=== PATIENT | female | born 1985 | race Caucasian/White ===

== ENCOUNTER 2017-02-21 21:40 | Emergency (ER) | payer MEDICAID, OTHER ==
[~2017-02-21] VITALS: Ht 165.1 cm; Wt 87.1 kg
[2017-02-21 21:51] VITALS: BP 144/101
[2017-02-21] MEDS ORDERED: NAPR500T1 PO (21:57)
[2017-02-21] MEDS ORDERED: ACET-2869 PO (21:57)
[2017-02-21] MEDS ORDERED: LISI10TA11 PO (21:57)
--- NOTE | 2017-02-21 22:52 | NUR ---
PT AMB TO ER BED 4
--- NOTE | 2017-02-21 23:00 | NUR ---
PATIENT PRESENTS TO ED WITH RASH TO RIGHT SIDE OF BACK; SEEN AT [place] LAST WEEK DX SHINGLES .DENIES N/V/D; SKIN IS PINK/WARM/DRY; AAOX4 WITH EVEN AND STEADY GAIT; LUNGS CLEAR BL; HR EVEN AND REGULAR; PT DENIES ANY FEVER, CP, SOB, OR COUGH AT THIS TIME; PATIENT STATES PAIN OF 8/10 AT THIS TIME; VSS; PATIENT POSITIONED FOR COMFORT; HOB ELEVATED; BEDRAILS UP X2; BED DOWN. ER MD MADE AWARE OF PT STATUS.
[2017-02-21] MEDS ORDERED: traMADol 50 MG TAB PO ONE (23:25)
--- NOTE | 2017-02-21 23:48 | NUR ---
Patient discharged with v/s stable. Written and verbal after care instructions given and explained. Patient alert, oriented and verbalized understanding of instructions. Ambulatory with steady gait. All questions addressed prior to discharge. ID band removed. Patient advised to follow up with PMD. Rx of tramadol and zofran given. Patient educated on indication of medication including possible reaction and side effects. Opportunity to ask questions provided and answered.
[2017-02-21 23:49] VITALS: BP 131/86
== END 2017-02-21 23:49 | disposition home or self-care (01) ==
LOC: MED 21:40
DX: B02.9 Zoster without complications (principal); R03.0 Elevated blood-pressure reading, without diagnosis of hypertension
CPT/HCPCS: 81002; 81025; 99283

== ENCOUNTER 2018-09-10 20:57 | Emergency (ER) | payer MEDICAID ==
[~2018-09-10] VITALS: Ht 167.6 cm; Wt 83.9 kg
[~2018-09-10 20:57] MED LIST: HYDR-5122 PO; LISI10TA11 PO; NAPR-54 PO
[2018-09-10 21:00] VITALS: BP 165/100
--- NOTE | 2018-09-10 21:03 | NUR ---
TO LOBBY A/W BED AMBULATORY
--- NOTE | 2018-09-10 21:51 | NUR ---
PT AMBULATED TO BED 1.
--- NOTE | 2018-09-10 21:52 | NUR ---
32 YO FEMALE WAS @ WORK AND DECIDED TO COME TO ER FOR C/O R LEG AND BILAT HANDS NUMBNESS. PT STATES SHE HAD PANIC ATTACK THIS AM AND RECENTLY HAD NEW STRESSOR IN LIFE. PT STATES, " I FOUND OUT MY TEENAGE DAUGHTER WAS A COUPLE DAYS AGO." PT DENIES DIZZINESS @ THIS TIME. LUNGS CLEAR EVEN UNLABORED BILATERALLY. PT DENIES CP/SOB @ THIS TIME. ABD SOFT NON DISTENDED. SKIN WARM DRY PINK INTACT. GURNEY LOCKED IN LOWEST POSITION. WILL UPDATE ERMD HX: HTN RX: LISINOPRIL LMP 08/27
[2018-09-10] MEDS ORDERED: ENALAPRILAT 2.5 MG/2 ML VIAL IVP ONE ×2 (22:55→23:35)
[2018-09-10] MEDS ORDERED: hydrALAZINE 20 MG/ML VIAL IVP ONE (22:55)
[2018-09-10 23:15] LABS: BASOPHILS % (AUTO) 0.6 % (0.0-2.0); EOSINOPHILS # (AUTO) 0.1 K/uL (0-0.4); EOSINOPHILS % (AUTO) 1.2 % (0.0-4.0); HEMATOCRIT 38.6 % (36-48); HEMOGLOBIN 12.6 g/dL (12.0-16.0); LYMPHOCYTES # (AUTO) 2.2 K/uL (2.5-16.5); LYMPHOCYTES % (AUTO) 34.3 % (20.5-51.1); MEAN CORPUSCULAR HEMOGLOBIN 27 pg (27-31); MEAN CORPUSCULAR HGB CONC 33 g/dL (33-37); MEAN CORPUSCULAR VOLUME 81.5 fL (80-94); MONOCYTES # (AUTO) 0.5 K/uL (0.8-1.0); MONOCYTES % (AUTO) 8.1 % (1.7-9.3); NEUTROPHILS # (AUTO) 3.6 K/uL (1.8-7.7); NEUTROPHILS % (AUTO) 55.8 % (42.2-75.2); PLATELET COUNT (AUTO) 301 K/uL (140-450); RED BLOOD CELL COUNT(AUTO) 4.73 MIL/uL (4.20-5.40); RED CELL DISTRIBUTION WIDTH 15.3 % (11.6-13.7); WHITE BLOOD COUNT (AUTO) 6.4 K/uL (4.8-10.8)
[2018-09-10 23:38] LABS: ANION GAP 14.7 (8-16); CARBON DIOXIDE 25.9 mmol/L (21-32); CREATININE 0.8 mg/dL (0.6-1.3); POTASSIUM 3.6 mmol/L (3.5-5.1); TOTAL BILIRUBIN 0.6 mg/dL (0.0-1.0)
[2018-09-10 23:39] LABS: ALBUMIN 3.8 g/dL (3.4-5.0)
[2018-09-10 23:58] VITALS: BP 155/82
--- NOTE | 2018-09-10 23:58 | NUR ---
DPatient discharged with v/s stable. Written and verbal after care instructions given and explained BY DR GALEANO Patient alert, oriented and verbalized understanding of instructions. Ambulatory with steady gait. All questions addressed prior to discharge BY DR GALEANO ID band removed. Patient advised to follow up with PMD. Rx of LISINPRIL/HCTZ given. Patient educated on indication of medication including possible reaction and side effects BY DR GALEANO Opportunity to ask questions provided and answered.
== END 2018-09-10 23:58 | disposition home or self-care (01) ==
LOC: MED 20:57
DX: I10 Essential (primary) hypertension (principal); Z79.891 Long term (current) use of opiate analgesic; Z79.1 Long term (current) use of non-steroidal anti-inflammatories (NSAID); Z79.899 Other long term (current) drug therapy
CPT/HCPCS: 36415; 80053; 85025; 99283; J0360; J3490

== ENCOUNTER 2020-01-11 23:20 | Emergency (ER) | payer MEDICAID ==
[~2020-01-11] VITALS: Ht 167.6 cm; Wt 83.5 kg
[2020-01-11 23:33] VITALS: BP 162/112
--- NOTE | 2020-01-11 23:36 | NUR ---
PT AMBULATED TO BED 03 WTIH STEADY GAIT.
--- NOTE | 2020-01-11 23:40 | NUR ---
PATIENT PRESENTS TO ED COMPLAINING OF PANIC ATTACK . PT STATES SHE GET THEMWHEN HER BBLOODPREESURE IS ELEVATED, AND HAS BEEN OFF HER MEDICATION FOR 2 WEEKSAS SHE HAS NOT BEE N ABLE TO SEE HER DOCTOR. DENIES N/V/D; SKIN IS PINK/WARM/DRY; AAOX4 WITH EVEN AND STEADY GAIT; LUNGS CLEAR BL; HR EVEN AND REGULAR; PT DENIES ANY FEVER, CP, SOB, OR COUGH AT THIS TIME; PATIENT STATES PAIN OF 0/10 AT THIS TIME; VSS; PATIENT POSITIONED FOR COMFORT; HOB ELEVATED; BEDRAILS UP X1; BED DOWN. ER MD MADE AWARE OF PT STATUS.
[2020-01-12] MEDS ORDERED: hydroCHLOROthiazide 25 MG TAB PO ONE
[2020-01-12] MEDS ORDERED: lisinopriL 20 MG TAB PO ONE
[2020-01-12 00:46] VITALS: BP 162/112
--- NOTE | 2020-01-12 00:46 | NUR ---
Patient discharged with v/s stable. Written and verbal after care instructions given and explained. Patient alert, oriented and verbalized understanding of instructions. Ambulatory with steady gait. All questions addressed prior to discharge. ID band removed. Patient advised to follow up with PMD. Rx of LISINOPRIL given. Patient educated on indication of medication including possible reaction and side effects. Opportunity to ask questions provided and answered.
== END 2020-01-12 00:45 | disposition home or self-care (01) ==
LOC: MED 23:20
DX: I10 Essential (primary) hypertension (principal); Z79.899 Other long term (current) drug therapy
CPT/HCPCS: 93005; 99283

== ENCOUNTER 2020-10-09 00:30 | Emergency (ER) | payer MEDICAID ==
[~2020-10-09] VITALS: Ht 165.1 cm; Wt 79.4 kg
[~2020-10-09 00:30] MED LIST changes: +LISI-486 PO; -LISI10TA11 PO
[2020-10-09 00:33] VITALS: BP 155/100
[2020-10-09] MEDS ORDERED: AMLO2.5T PO (03:35)
[2020-10-09 03:46] VITALS: BP 155/100
== END 2020-10-09 03:46 | disposition home or self-care (01) ==
LOC: MED 00:30
DX: F41.9 Anxiety disorder, unspecified (principal); I10 Essential (primary) hypertension
CPT/HCPCS: 99283

== ENCOUNTER 2021-06-12 01:30 | Emergency (ER) | payer MEDICAID ==
[~2021-06-12] VITALS: Ht 165.1 cm; Wt 81.6 kg
[~2021-06-12 01:30] MED LIST changes: +AMLO2.5T PO
[2021-06-12 01:55] VITALS: BP 157/104
[2021-06-12] MEDS ORDERED: AMLO2.5T PO ×2 (02:08→02:55)
[2021-06-12] MEDS ORDERED: LISI-486 PO (02:08)
[2021-06-12] MEDS ORDERED: LISI-487 PO (02:55)
[2021-06-12 03:00] VITALS: BP 157/104
== END 2021-06-12 03:00 | disposition home or self-care (01) ==
LOC: MED 01:30
DX: I10 Essential (primary) hypertension (principal); R42 Dizziness and giddiness; Z76.0 Encounter for issue of repeat prescription; Z79.899 Other long term (current) drug therapy; Z98.890 Other specified postprocedural states
CPT/HCPCS: 99281

== ENCOUNTER 2021-11-14 13:43 | Emergency (ER) | payer MEDICAID ==
[~2021-11-14] VITALS: Ht 167.6 cm; Wt 81.6 kg
[~2021-11-14 13:43] MED LIST changes: +LISI-487 PO
[2021-11-14 14:09] VITALS: BP 145/105
--- NOTE | 2021-11-14 15:01 | NUR ---
Willis Alvarenga evaluating pt chair A
[2021-11-14] MEDS ORDERED: MECL-303 PO (15:40)
[2021-11-14 16:30] VITALS: BP 152/103
--- NOTE | 2021-11-14 16:30 | NUR ---
Patient discharged with v/s stable. Written and verbal after care instructions about benign positional vertigo given and explained. Patient alert, oriented and verbalized understanding of instructions. Ambulatory with steady gait. All questions addressed prior to discharge. ID band removed. Patient advised to follow up with PMD. Rx of Meclizine given. Patient educated on indication of medication including possible reaction and side effects. Opportunity to ask questions provided and answered.
== END 2021-11-14 16:30 | disposition home or self-care (01) ==
LOC: MED 13:43
DX: H81.10 Benign paroxysmal vertigo, unspecified ear (principal); I10 Essential (primary) hypertension; Z79.899 Other long term (current) drug therapy
CPT/HCPCS: 81025; 99282

== ENCOUNTER 2022-04-02 16:02 | Emergency (ER) | payer MEDICAID ==
[~2022-04-02] VITALS: Ht 162.6 cm; Wt 77.1 kg
[~2022-04-02 16:02] MED LIST changes: +MECL-303 PO
[2022-04-02 16:10] VITALS: BP 177/121
[2022-04-02] MEDS ORDERED: LORazepam 2 MG/ML VIAL ONE (16:35)
[2022-04-02 17:49] LABS: BASOPHILS # (AUTO) 0.1 K/uL (0.00-0.22); BASOPHILS % (AUTO) 0.7 % (0.0-2.0); EOSINOPHILS # (AUTO) 0.2 K/uL (0-0.4); EOSINOPHILS % (AUTO) 2.4 % (0.0-4.0); HEMATOCRIT 38.5 % (36-48); HEMOGLOBIN 12.8 g/dL (12.0-16.0); LYMPHOCYTES % (AUTO) 37.6 % (20.5-51.1); MEAN CORPUSCULAR HEMOGLOBIN 27 pg (27-31); MEAN CORPUSCULAR HGB CONC 33 g/dL (33-37); MEAN CORPUSCULAR VOLUME 82.2 fL (80-94); MONOCYTES # (AUTO) 0.8 K/uL (0.8-1.0); MONOCYTES % (AUTO) 9.9 % (1.7-9.3); NEUTROPHILS # (AUTO) 3.9 K/uL (1.8-7.7); NEUTROPHILS % (AUTO) 49.4 % (42.2-75.2); PLATELET COUNT (AUTO) 285 K/uL (140-450); RED BLOOD CELL COUNT(AUTO) 4.68 MIL/uL (4.20-5.40); RED CELL DISTRIBUTION WIDTH 15.2 % (11.6-13.7); WHITE BLOOD COUNT (AUTO) 7.9 K/uL (4.8-10.8)
--- NOTE | 2022-04-02 17:51 | NUR ---
36 Y/O FEMALE BIB SELF C/O RIGHT ARM PAIN X30 MIN, DENIES ANY TRAUMA OR INJURY NKA PMH: HTN
--- NOTE | 2022-04-02 17:52 | NUR ---
PT TAKEN TO XRAY VIA WC
[2022-04-02 18:25] LABS: ALBUMIN 4.2 g/dL (3.4-5.0); ANION GAP 11.2 (8-16); ASPARTATE AMINOTRANSFERASE 20 U/L (15-37); CARBON DIOXIDE 30.7 mmol/L (21-32); CHLORIDE 102 mmol/L (98-107); CREATININE 0.7 mg/dL (0.6-1.3); GFR ARICAN-AMERICAN 120 mL/min (>90); GLUCOSE 94 mg/dL (74-106); POTASSIUM 3.9 mmol/L (3.5-5.1); SODIUM SERUM 140 mmol/L (136-145); TOTAL BILIRUBIN 0.3 mg/dL (0.0-1.0); UREA NITROGEN, BLOOD 7 mg/dL (7-18)
--- NOTE | 2022-04-02 19:24 | NUR ---
Pt report given to JOSUE ESPINOZA. Transfer of care at this time.
--- NOTE | 2022-04-02 19:50 | NUR ---
Patient lying in bed, A/Ox4, chest rise and fall symmetrical, no s/s of distress, no c/o pain.
[2022-04-02 20:59] VITALS: BP 118/84
--- NOTE | 2022-04-02 21:03 | NUR ---
Patient discharged with v/s stable. Written and verbal after care instructions given and explained. Patient verbalized understanding. Ambulatory with steady gait. All questions addressed prior to discharge. Advised to follow up with PMD.
== END 2022-04-02 21:03 | disposition home or self-care (01) ==
LOC: MED 16:02
DX: M79.602 Pain in left arm (principal); I10 Essential (primary) hypertension; Z79.899 Other long term (current) drug therapy; Z98.890 Other specified postprocedural states
CPT/HCPCS: 36415; 71046; 80053; 84484; 85025; 93005; 99285; J2060

== ENCOUNTER 2022-05-13 02:14 | Emergency (ER) | payer MEDICAID ==
[~2022-05-13] VITALS: Ht 167.6 cm; Wt 84.8 kg
[2022-05-13 02:16] VITALS: BP 173/119
--- NOTE | 2022-05-13 02:25 | NUR ---
Patient taken to bed 2.
--- NOTE | 2022-05-13 02:30 | NUR ---
Patient resting in bed, A/Ox4, chest rise and fall symmetrical, no c/o pain or s/s of distress.
--- NOTE | 2022-05-13 02:35 | NUR ---
Dr. Brown speaking with patient.
[2022-05-13] MEDS: ACETAMINOPHEN EXTRA STRENGTH 500 MG TAB PO ONE (02:47)
[2022-05-13] MEDS: lisinopriL 20 MG TAB PO ONE (02:48)
--- NOTE | 2022-05-13 03:00 | NUR ---
Patient resting in bed, A/Ox4, chest rise and fall symmetrical, no c/o pain or s/s of distress.
[2022-05-13] MEDS ORDERED: ACET-10509 PO (03:13)
[2022-05-13] MEDS ORDERED: LISI-487 PO (03:13)
[2022-05-13] MEDS ORDERED: MENT7.6L6 PO (03:13)
[2022-05-13 03:20] VITALS: BP 153/100
== END 2022-05-13 03:20 | disposition home or self-care (01) ==
LOC: MED 02:14
DX: B34.9 Viral infection, unspecified (principal); Z20.822 Contact with and (suspected) exposure to COVID-19; I10 Essential (primary) hypertension; Z98.890 Other specified postprocedural states; Z79.899 Other long term (current) drug therapy; Z79.1 Long term (current) use of non-steroidal anti-inflammatories (NSAID); Z79.891 Long term (current) use of opiate analgesic
CPT/HCPCS: 99283

== ENCOUNTER 2022-09-11 07:00 | Emergency (ER) | payer MEDICAID ==
[~2022-09-11] VITALS: Ht 167.6 cm; Wt 86.2 kg
[~2022-09-11 07:00] MED LIST changes: +ACET-10509 PO; +MENT7.6L6 PO
[2022-09-11 07:47] VITALS: BP 125/82; PULSE 97; RESP 20; TEMP 97; O2SAT 98
--- NOTE | 2022-09-11 08:08 | NUR ---
Dr. Guallpa evaluating patient at bedside.
[2022-09-11] MEDS ORDERED: ONDANSETRON 4 MG/2 ML VIAL IVP ONE (08:15)
[2022-09-11] MEDS ORDERED: MORPHINE SULFATE 4 MG/ML SYR IVP ONE (08:15)
[2022-09-11] MEDS ORDERED: NACL 0.9% 1,000 ML IV ONE (08:15)
[2022-09-11 08:33] LABS: BASOPHILS % (AUTO) 0.6 % (0.0-2.0); EOSINOPHILS # (AUTO) 0.2 K/uL (0-0.4); EOSINOPHILS % (AUTO) 2.3 % (0.0-4.0); HEMATOCRIT 41.7 % (36-48); HEMOGLOBIN 13.8 g/dL (12.0-16.0); LYMPHOCYTES # (AUTO) 2.1 K/uL (2.5-16.5); MEAN CORPUSCULAR HEMOGLOBIN 28 pg (27-31); MEAN CORPUSCULAR HGB CONC 33 g/dL (33-37); MEAN CORPUSCULAR VOLUME 83.5 fL (80-94); MONOCYTES # (AUTO) 0.5 K/uL (0.8-1.0); MONOCYTES % (AUTO) 6.6 % (1.7-9.3); NEUTROPHILS # (AUTO) 4.4 K/uL (1.8-7.7); NEUTROPHILS % (AUTO) 61.5 % (42.2-75.2); PLATELET COUNT (AUTO) 324 K/uL (140-450); RED BLOOD CELL COUNT(AUTO) 4.99 MIL/uL (4.20-5.40); RED CELL DISTRIBUTION WIDTH 15.6 % (11.6-13.7); WHITE BLOOD COUNT (AUTO) 7.2 K/uL (4.8-10.8)
--- NOTE | 2022-09-11 08:35 | NUR ---
Ultrasound at bedside.
[2022-09-11 08:46] LABS: ANION GAP 10.9 (8-16); CARBON DIOXIDE 30.5 mmol/L (21-32); CREATININE 0.6 mg/dL (0.6-1.3); POTASSIUM 3.4 mmol/L (3.5-5.1); TOTAL BILIRUBIN 0.3 mg/dL (0.0-1.0)
[2022-09-11 09:04] LABS: APPEARANCE,URINE CLEAR (CLEAR); BILIRUBIN,URINE NEGATIVE (NEGATIVE); BLOOD, URINE NEGATIVE (NEGATIVE); COLOR,URINE YELLOW (YELLOW); LEUKOCYTE ESTERASE ,URINE NEGATIVE (NEGATIVE); NITRITE, URINE NEGATIVE (NEGATIVE); UGLUCOSE NEGATIVE (NEGATIVE)
--- NOTE | 2022-09-11 09:11 | NUR ---
Patient returned from CT.
[2022-09-11] MEDS ORDERED: MAGN400S60 PO (09:38)
[2022-09-11] MEDS ORDERED: IBUP-2213 PO (09:38)
[2022-09-11] MEDS ORDERED: ONDA-188 PO (09:38)
--- NOTE | 2022-09-11 09:41 | NUR ---
Dr. Guallpa evaluating patient at bedside.
--- NOTE | 2022-09-11 10:00 | NUR ---
Chart checked and completed. The patient's care was reviewed and supervised by MICKI ARAMBULA RN.
[2022-09-11 10:02] VITALS: BP 134/95; PULSE 69; RESP 18; O2SAT 100
--- NOTE | 2022-09-11 10:02 | NUR ---
Patient discharged with v/s stable. Written and verbal after care instructions given. Patient alert, oriented and verbalized understanding of instructions. Ambulatory with steady gait. All questions addressed prior to discharge. ID band removed. Patient advised to follow up with PMD. Rx of Ibuprofen, Milk of Magnesia and Zofran given. Opportunity to ask questions provided and answered. WORK NOTE HANDED TO PATIENT.
== END 2022-09-11 10:00 | disposition home or self-care (01) ==
LOC: MED 07:00
DX: K59.00 Constipation, unspecified (principal); I10 Essential (primary) hypertension; Z98.890 Other specified postprocedural states; Z79.899 Other long term (current) drug therapy
CPT/HCPCS: 36415; 74176; 76830; 80053; 81003; 81025; 82150; 83690; 84703; 85025; 87086; 96361; 96374; 96375; 99285; J2270; J2405; Q0092; J7030

== ENCOUNTER 2022-10-21 06:45 | Emergency (ER) | payer MEDICAID ==
[~2022-10-21] VITALS: Ht 167.6 cm; Wt 86.2 kg
[~2022-10-21 06:45] MED LIST changes: +IBUP-2213 PO; +MAGN400S60 PO; +ONDA-188 PO
[2022-10-21 06:54] VITALS: BP 125/68; PULSE 81; RESP 16; TEMP 98; O2SAT 98
--- NOTE | 2022-10-21 06:57 | NUR ---
TO LOBBY A/W BED AMBULATORY
[2022-10-21] MEDS ORDERED: LIDOCAINE 5% 1 EA PATCH TP ONE (07:30)
[2022-10-21] MEDS ORDERED: KETOROLAC 30 MG/ML VIAL IM ONE (07:30)
[2022-10-21] MEDS ORDERED: methocarbamoL 500 MG TAB PO ONE (07:50)
[2022-10-21] MEDS ORDERED: CYCL-711 PO (09:54)
[2022-10-21] MEDS ORDERED: LID5T TP (09:54)
[2022-10-21] MEDS ORDERED: IBUP-2213 PO (09:54)
--- NOTE | 2022-10-21 10:05 | NUR ---
Patient discharged with v/s stable. Written and verbal after care instructions given and explained. Patient alert, oriented and verbalized understanding of instructions. Ambulatory with steady gait. All questions addressed prior to discharge. ID band removed. Patient advised to follow up with PMD. Rx of FLEXERIL, LIDOCAINE, IBUPROFEN given. Patient educated on indication of medication including possible reaction and side effects. Opportunity to ask questions provided and answered.
== END 2022-10-21 07:35 | disposition home or self-care (01) ==
LOC: MED 06:45
DX: S39.012A Strain of muscle, fascia and tendon of lower back, initial encounter (principal); I10 Essential (primary) hypertension; Z79.899 Other long term (current) drug therapy; X58.XXXA Exposure to other specified factors, initial encounter; Y93.89 Activity, other specified; Y92.89 Other specified places as the place of occurrence of the external cause; Y99.8 Other external cause status
CPT/HCPCS: 96372; 99283; J1885

== ENCOUNTER 2023-10-19 13:26 | Emergency (ER) | payer MEDICAID ==
[~2023-10-19] VITALS: Ht 167.6 cm; Wt 85.7 kg
[~2023-10-19 13:26] MED LIST changes: +CYCL-711 PO; +LID5T TP; -LISI-486 PO; -LISI-487 PO; +LISI-951 PO; +LISI-953 PO; +MENT7.6L13 PO; -MENT7.6L6 PO; +NAPR-337 PO; -NAPR-54 PO
[2023-10-19 13:49] VITALS: BP 157/100; PULSE 86; RESP 24; TEMP 98; O2SAT 99
[2023-10-19] MEDS: KETOROLAC 30 MG/ML VIAL IVP ONE (14:40)
[2023-10-19] MEDS: diphenhydrAMINE 50 MG/ML VIAL IVP ONE (14:40)
[2023-10-19] MEDS: ONDANSETRON 4 MG/2 ML VIAL IVP ONE (14:40)
[2023-10-19 14:46] LABS: BASOPHILS % (AUTO) 0.3 % (0.0-2.0); EOSINOPHILS % (AUTO) 0.1 % (0.0-4.0); HEMATOCRIT 38.6 % (36-48); HEMOGLOBIN 12.6 g/dL (12.0-16.0); LYMPHOCYTES # (AUTO) 1.3 K/uL (2.5-16.5); LYMPHOCYTES % (AUTO) 12.5 % (20.5-51.1); MEAN CORPUSCULAR HEMOGLOBIN 26 pg (27-31); MEAN CORPUSCULAR HGB CONC 33 g/dL (33-37); MEAN CORPUSCULAR VOLUME 80.2 fL (80-94); MONOCYTES # (AUTO) 0.3 K/uL (0.8-1.0); MONOCYTES % (AUTO) 2.7 % (1.7-9.3); NEUTROPHILS # (AUTO) 8.5 K/uL (1.8-7.7); NEUTROPHILS % (AUTO) 84.4 % (42.2-75.2); PLATELET COUNT (AUTO) 320 K/uL (140-450); RED BLOOD CELL COUNT(AUTO) 4.81 MIL/uL (4.20-5.40); RED CELL DISTRIBUTION WIDTH 15.9 % (11.6-13.7); WHITE BLOOD COUNT (AUTO) 10.1 K/uL (4.8-10.8)
[2023-10-19 14:57] LABS: ANION GAP 12.7 (8-16); CALCIUM 8.9 mg/dL (8.5-10.1); CARBON DIOXIDE 28.7 mmol/L (21-32); CREATININE 0.8 mg/dL (0.6-1.3); POTASSIUM 3.4 mmol/L (3.5-5.1)
[2023-10-19 15:01] LABS: ALBUMIN 3.9 g/dL (3.4-5.0); BILIRUBIN,DIRECT 0.1 mg/dL (0.0-0.3); TOTAL BILIRUBIN 0.4 mg/dL (0.0-1.0)
[2023-10-19 15:21] LABS: APPEARANCE,URINE SLIGHTLY CLOUDY (CLEAR); BILIRUBIN,URINE NEGATIVE (NEGATIVE); BLOOD, URINE NEGATIVE (NEGATIVE); COLOR,URINE YELLOW (YELLOW); LEUKOCYTE ESTERASE ,URINE NEGATIVE (NEGATIVE); NITRITE, URINE NEGATIVE (NEGATIVE); PH,URINE 7.5 (5.0-9.0); PROTEIN,URINE 1+ (NEGATIVE); UGLUCOSE NEGATIVE (NEGATIVE)
[2023-10-19 15:24] LABS: BACTERIA,URINE 2+ /HPF (None Seen); MUCUS,URINE None Seen /LPF (None Seen); RBC,URINE 0-5 /HPF (0-5); SQUAMOUS EPITHELIAL CELL,UR 0-3 (FEW) /LPF (0-3 (FEW)); WBC,URINE 0-5 /HPF (0-5)
[2023-10-19] MEDS ORDERED: ACET-10509 PO (16:09)
[2023-10-19] MEDS ORDERED: ONDA-188 SL (16:09)
[2023-10-19] MEDS ORDERED: IBUP-2218 PO (16:09)
[2023-10-19 16:45] VITALS: BP 158/99; PULSE 91; RESP 25; TEMP 98; O2SAT 99
== END 2023-10-19 16:39 | disposition home or self-care (01) ==
LOC: MED 13:26
DX: K80.20 Calculus of gallbladder without cholecystitis without obstruction (principal); I10 Essential (primary) hypertension; Z79.899 Other long term (current) drug therapy
CPT/HCPCS: 36415; 76705; 80048; 80076; 81001; 81025; 83690; 85025; 87086; 96374; 96375; 99285; J1200; J1885; J2405; Q0092